=== PATIENT | female | born 1975 | race Caucasian/White ===

== ENCOUNTER 2018-07-11 15:35 | Emergency (ER) | payer OTHER ==
[~2018-07-11] VITALS: Ht 175.3 cm; Wt 108.9 kg
[~2018-07-11 15:35] MED LIST: ONDA8ODT MM; RANI150 PO
[2018-07-11] MEDS ORDERED: ERYT1OIN LEFTEYE (16:04)
== END 2018-07-11 16:51 | disposition home or self-care (01) ==
LOC: ER 15:35
DX: S05.02XA Injury of conjunctiva and corneal abrasion without foreign body, left eye, initial encounter (principal); W22.8XXA Striking against or struck by other objects, initial encounter; Z88.2 Allergy status to sulfonamides; Z88.0 Allergy status to penicillin
CPT/HCPCS: 99283

== ENCOUNTER → 2021-01-29 | Outpatient (CLI) | payer OTHER ==
[~2021-01-29] MED LIST changes: +ERYT1OIN LEFTEYE
== END | disposition home or self-care (01) ==
LOC: LAB 07:50 → LAB SHORT 07:50
DX: B35.1 Tinea unguium (principal); L60.2 Onychogryphosis
CPT/HCPCS: 88305; 88312

== ENCOUNTER → 2022-06-06 | Outpatient (CLI) | payer OTHER ==
[2022-06-06 12:10] LABS: Albumin, Blood 3.8 g/dL (3.4-5.0); Albumin/Globulin Ratio 0.9 (0.8-1.8); Bilirubin, Total 0.5 mg/dL (0.1-1.0); Bun/Creatinine Ratio 13.3 (12.0-20.0); Calcium, Blood 9.2 mg/dL (8.5-10.1); Creatinine, Blood 0.83 mg/dL (0.40-1.00); Globulin, Blood 4.3 g/dL (2.2-4.0); Potassium, Blood 4.1 mmol/L (3.5-5.5); Total Protein, Blood 8.1 g/dL (6.4-8.2)
[2022-06-06 12:29] LABS: BASOPHILS ABSOLUTE AUTO 0.07 K/mm3 (0.00-0.23); BASOPHILS PERCENT AUTO 1 % (0-2); EOSINOPHILS ABSOLUTE AUTO 0.05 K/mm3 (0.00-0.68); EOSINOPHILS PERCENT AUTO 1 % (0-6); Hematocrit 39.4 % (33.0-51.0); Hemoglobin 12.9 g/dL (11.5-16.0); IMMATURE GRAN ABSOLUTE AUTO 0.03 K/mm3 (0.00-0.10); IMMATURE GRAN PERCENT AUTO 0 % (0-1); LYMPHOCYTES ABSOLUTE AUTO 2.07 K/mm3 (0.84-5.20); LYMPHOCYTES PERCENT AUTO 27 % (21-46); MONOCYTES ABSOLUTE AUTO 0.44 K/mm3 (0.16-1.47); MONOCYTES PERCENT AUTO 6 % (4-13); Mean Corpuscular HGB Conc 32.7 g/dL (31.5-36.5); Mean Corpuscular Volume 86 fL (80-100); Mean Platelet Volume 10.2 fL (9.1-12.4); NEUTROPHILS PERCENT AUTO 65 % (41-73); Platelet Count 323 K/mm3 (150-400); RDW Coefficient Variation 14.6 % (11.7-14.2); RDW Standard Deviation 45.6 fL (35.1-46.3); White Blood Cell Count 7.66 K/mm3 (4.00-11.30)
== END ==
LOC: LAB SHORT 11:49
PROVIDERS: General Practice
DX: R10.9 Unspecified abdominal pain (principal)
CPT/HCPCS: 80053; 85025; 85379

== ENCOUNTER → 2022-08-18 | Outpatient (CLI) | payer OTHER ==
[2022-08-22 15:12] LABS: HPV 16 Negative (Negative); HPV 18 Negative (Negative); HPV OTHER HR TYPES Negative (Negative)
== END | disposition home or self-care (01) ==
LOC: LAB SHORT 16:04
PROVIDERS: Obstetrics & Gynecology
DX: Z01.419 Encounter for gynecological examination (general) (routine) without abnormal findings (principal)
CPT/HCPCS: 87624; G0145

== ENCOUNTER → 2022-10-08 | Outpatient (CLI) | payer OTHER | LOC: PLD 08:06 → LAB SHORT 08:06 | DX: N92.4 Excessive bleeding in the premenopausal period (principal) | CPT/HCPCS: 88305 ==

== ENCOUNTER → 2023-01-09 | Outpatient (CLI) | payer OTHER ==
[2023-01-09 17:06] LABS: Source, Urine Clean Catch
[2023-01-09 17:46] LABS: Appearance, Urine Clear (Clear); Bilirubin, Urine Neg (Neg); Blood, Urine 1+ (Neg); Color, Urine Yellow (P-Yellow); Glucose Qualitative, Urine Neg (Neg); Ketones, Urine Neg (Neg); Leukocyte Esterase, Urine Neg (Neg); Nitrite, Urine Neg (Neg); Protein, Urine Neg (Neg); Urobilinogen, Urine NORM (Normal)
[2023-01-09 17:55] LABS: Bacteria Few /hpf; Red Blood Cells, Urine 0-2 /hpf (0-2); Squamous Epithelial Cells Few /hpf (Few); White Blood Cells, Urine 0-2 /hpf (0-5)
== END | disposition home or self-care (01) ==
LOC: LAB 17:05 → LAB SHORT 17:05
PROVIDERS: Obstetrics & Gynecology
DX: Z01.812 Encounter for preprocedural laboratory examination (principal)
CPT/HCPCS: 81001

== ENCOUNTER 2023-01-19 05:46 | Day surgery (SDC) | payer OTHER ==
[2023-01-19] VITALS (16 sets, daily range): BP systolic 116–156; BP diastolic 61–90
[~2023-01-19] VITALS: Ht 175.3 cm; Wt 110.6 kg
--- NOTE | 2023-01-19 06:51 | NUR ---
Ambulatory in Day Surgery History, Chart, Medications and Allergies reviewed before start of procedure. Pre-Op teaching done. Pt verbalizes understanding. Patient States Post-Procedure ride home has been arranged.
--- NOTE | 2023-01-19 13:20 | NUR ---
1251 ARRIVAL ARRIVED A&O FROM PACU. PATIENT REPORTS PRESSURE TO VAGINA & PAIN TO RLQ. ABD SOFT, NON TENDER TO PALP. INCISIONS TO ABD WITHOUT DRAINAGE. BARRETT PAD IN PLACE, CLEAN & DRY. ASSESSED FOR RISK OF IGNITION, NO RISK IDENTIFIED.
--- NOTE | 2023-01-19 14:12 | NUR ---
ASSUMED CARE OF PT FROM TYRESE Bearden RN
--- NOTE | 2023-01-19 18:23 | NUR ---
SUMMARY NO ACUTE CHANGES SIN[facility] VSS. VAG PACKING IN PLACE. ZEPEDA DRAINING DAHL YELLOW URINE. LAP INCISIONS W/DERMABOND TO ABD CDI. MEDICATED PT PER ORDERS FOR PAIN. KPAD TO LOWER ABD PRN COMFORT. PT GOT UP AND OOB WITH CNAS' ASSISTANCE THIS EVENING. CALL LIGHT IN REACH.
[2023-01-20 00:04] VITALS: BP 132/71
[2023-01-20 04:33] VITALS: BP 144/79
--- NOTE | 2023-01-20 06:40 | NUR ---
POD 1 S/P TOTAL HYSTER. PT VSS T/O NIGHT. INCISIONS CDI. PAIN MGD PER EMAR W/REP RELIEF. BARRETT PAD CHANGED X1, VAGINAL PACKING REMOVED THIS AM PER ORDERS. ZEPEDA CATH D/C THIS AM; AWAITING FIRST VOID. PT NALLELY PO, DENIED N/V, REP +SMALL AMT FLATUS THIS AM. PT AMB W/SBA, NALLELY WELL.
[2023-01-20 07:25] VITALS: BP 119/65
--- NOTE | 2023-01-20 11:00 | NUR ---
PT ASSESSED FOR IGNITION SOURCES, NO FINDINGS.
[2023-01-20 13:05] VITALS: BP 142/90
--- NOTE | 2023-01-20 13:45 | NUR ---
IV REMOVED PRIOR TO DISCHARGE SITE WITHIN NORMAL LIMITS. IV CATHETER INTACT AT TIME OF REMOVAL.
--- NOTE | 2023-01-20 15:01 | NUR ---
DISCHARGE PT PROVIDED WITH WRITTEN AND VERBAL DISCHARGE INSTRUCTIONS. PT MEETING ALL GOALS AT TIME OF DISCHARGE; PAIN MANAGED WITH PO PAIN MEDS, PT ABLE TO VOID, TOLERATING PO AND PT ABLE TO PASS FLATUS. PT ALSO AMBULATING INDEPENDENTLY. PT WAS ASSISTED OUT IN A W/C AT APPROXIMATELY 1345. MEDICATIONS WERE SENT TO PHARMACY BY DR. DE GUZMAN'S OFFICE. VSS AT TIME OF DISCHARGE.
== END 2023-01-20 13:45 | disposition home or self-care (01) ==
LOC: ORSCMMR 05:46 → ORD 07:30 → ORSCMMR 07:30 → SURS 12:54 → ORSCMMR 01-20 13:45
PROVIDERS: Obstetrics & Gynecology
PROC: 0UT7FZZ Resection of Bilateral Fallopian Tubes, Via Natural or Artificial Opening With Percutaneous Endoscopic Assistance (ICD-10-PCS; principal; 2023-01-19 07:30)
PROC: 0JQC0ZZ Repair Pelvic Region Subcutaneous Tissue and Fascia, Open Approach (ICD-10-PCS; principal; 2023-01-19 07:30)
PROC: 8E0W4CZ Robotic Assisted Procedure of Trunk Region, Percutaneous Endoscopic Approach (ICD-10-PCS; principal; 2023-01-19 07:30)
PROC: 0UT9FZZ Resection of Uterus, Via Natural or Artificial Opening With Percutaneous Endoscopic Assistance (ICD-10-PCS; principal; 2023-01-19 07:30)
DX: N92.0 Excessive and frequent menstruation with regular cycle (principal); D25.9 Leiomyoma of uterus, unspecified; N81.89 Other female genital prolapse; N80.03 Adenomyosis of the uterus; E78.00 Pure hypercholesterolemia, unspecified; E66.9 Obesity, unspecified; Z68.36 Body mass index [BMI] 36.0-36.9, adult
CPT/HCPCS: 58571; 57265; S2900; 86850; 86900; 86901; 88307; A9270; J0736; J1100; J1580; J1885; J2250; J2405; J2704; J2765; J3010; J7120